=== PATIENT | female | born 1950 | race Caucasian/White ===

== ENCOUNTER → 2016-07-03 | Outpatient (CLI) | payer MEDICARE, OTHER ==
--- NOTE | 2016-07-04 09:55 | MM ---
Reason for exam: screening (asymptomatic). Last mammogram was performed 1 year ago. History: Patient is postmenopausal. Family history of breast cancer in 2 paternal cousins. Took estrogen for 11 years. Physical Findings: A clinical breast exam by your physician is recommended on an annual basis and results should be correlated with mammographic findings. MG 3D Screening Mammo W/Cad Bilateral CC and MLO view(s) were taken. Prior study comparison: July 01, 2015, bilateral MG 3d screening mammo w/cad. June 29, 2014, bilateral MG screening mammo w CAD. The breast tissue is heterogeneously dense. This may lower the sensitivity of mammography. There is no discrete abnormality. No significant changes when compared with prior studies. ASSESSMENT: Negative, BI-RAD 1 RECOMMENDATION: Routine screening mammogram of both breasts in 1 year.
== END | disposition home or self-care (01) ==
LOC: RADMAMWWP 10:10
PROVIDERS: ATTEND Obstetrics & Gynecology
DX: Z12.31 Encounter for screening mammogram for malignant neoplasm of breast (principal)
CPT/HCPCS: 77063; G0202

== ENCOUNTER → 2016-11-14 | Outpatient (CLI) | payer MEDICARE ==
--- NOTE | 2016-11-14 09:28 | CT ---
EXAMINATION TYPE: CT sinus wo con DATE OF EXAM: 11/14/2016 COMPARISON: NONE HISTORY: Chronic Sinusitis CT DLP: 600 mGycm. Automated Exposure Control for Dose Reduction was Utilized. TECHNIQUE: CT scan of the sinuses is performed without contrast, axial images are obtained, coronal r eformatted images are also reviewed. FINDINGS: There is mild atrophic change involving the brain. The orbits appear normal. Soft tissues a re otherwise normal. There is a 1.5 cm retention cyst or polyp involving the inferior aspect of the right maxillary sinus. The paranasal sinuses are otherwise clear. Both infundibula are patent. IMPRESSION: 1. MILD CEREBRAL ATROPHY. 2. RETENTION CYST OR POLYP, RIGHT MAXILLARY SINUS.
== END | disposition home or self-care (01) ==
LOC: RADCTMAIN 08:53
PROVIDERS: ATTEND Otolaryngology
DX: G31.9 Degenerative disease of nervous system, unspecified (principal); J32.9 Chronic sinusitis, unspecified
CPT/HCPCS: 70486

== ENCOUNTER → 2017-07-12 | Outpatient (CLI) | payer MEDICARE ==
--- NOTE | 2017-07-12 09:20 | MM ---
Reason for exam: additional evaluation requested from abnormal screening. Last mammogram was performed less than 1 month ago. History: Patient is postmenopausal. Family history of breast cancer in 2 paternal cousins. Took estrogen for 11 years. Physical Findings: Nurse did not find any significant physical abnormalities on exam. MG 3D Work Up W/Cad RT Spot compression CC, spot compression MLO, and ML view(s) were taken of the right breast. Prior study comparison: July 05, 2017, bilateral MG 3d screening mammo w/cad. July 03, 2016, bilateral MG 3d screening mammo w/cad. The breast tissue is heterogeneously dense. This may lower the sensitivity of mammography. The previously seen focal asymmetry resolves on spot compression views and appears as fibroglandular tissue. No significant new findings when compared with previous films. These results were verbally communicated with the patient and result sheet given to the patient on 07/12/17. ASSESSMENT: Negative, BI-RAD 1 RECOMMENDATION: Return to routine screening mammogram schedule for both breasts.
== END | disposition home or self-care (01) ==
LOC: RADMAMWWP 08:13
PROVIDERS: ATTEND Obstetrics & Gynecology
DX: R92.8 Other abnormal and inconclusive findings on diagnostic imaging of breast (principal)
CPT/HCPCS: 77065; G0279

== ENCOUNTER → 2017-07-17 | Outpatient (CLI) | payer MEDICARE ==
--- NOTE | 2017-07-17 15:22 | BD ---
EXAMINATION TYPE: MG DEXA axial skeleton. DATE OF EXAM: 07/17/2017 COMPARISON: Prior DEXA bone scan June 29, 2014 CLINICAL HISTORY: Postmenopausal femaleosteopenia Height: 5'2 1/2 Weight: 198 FRAX RISK QUESTIONS: Alcohol (3 or more units per day): no Family History (Parent hip fracture): no Glucocorticoids (More than 3mos): no (Ex: prednisone, prednisolone, methylprednisolone, dexamethasone, and hydrocortisone). History of Fracture in Adulthood: no Secondary Osteoporosis: 1. Type 1 Diabetes: no 2. Hyperthyroidism: no 3. Menopause before 45: yes 4. Malnutrition: no 5. Chronic liver disease: no Rheumatoid Arthritis: no Current Tobacco Use: no RISK FACTORS HISTORY OF: Postmenopausal woman: y synthroid how long: > 10 years MEDICATIONS: Additional Medications: anxiety, cholesterol, synthroid Additional History: EXAM MEASUREMENTS: Bone mineral densitometry was performed using the [employer] System. Bone mineral density as measured about the Lumbar spine is: ----- L1-L4(G/cm2): 1.294 T Score Values are as follows: ----- L2: 1.0 ----- L3: 0.9 ----- L4: 2.2 ----- L1-L4:1.0 Bone mineral density has: Decreased -3.2since study of: 06/29/2014 Bone mineral density about the R hip (g/cm2): 0.831 Bone mineral density about the L hip (g/cm2): 0.940 T Score values are as follows: -----R Neck: -1.5 -----L Neck: -0.7 -----R Total: -0.1 -----L Total: -0.2 Bone mineral density has: Decreased -2.7inc study of: 06/29/2014 IMPRESSION: Osteopenia (T Score between -2.5 and -1) at femoral neck level right hip. There is slightly increased risk of fracture and the patient may be considered for treatment. Re-Screen 2-5 years. NOTE: T-SCORE=SD OF THE YOUNG ADULT MEAN.
== END ==
LOC: RADBDWWP 12:41
PROVIDERS: ATTEND Obstetrics & Gynecology
DX: M85.88 Other specified disorders of bone density and structure, other site (principal)
CPT/HCPCS: 77080

== ENCOUNTER 2017-12-29 18:07 | Emergency (ER) | payer MEDICARE ==
[2017-12-29 18:18] VITALS: BP 140/73; PULSE 67; RESP 18; TEMP 98.2
--- NOTE | 2017-12-29 19:18 | US ---
EXAMINATION TYPE: US venous doppler duplex LE RT DATE OF EXAM: 12/29/2017 7:08 PM COMPARISON: Right lower extremity venous ultrasound October 15, 2015 CLINICAL HISTORY: Pain. SIDE PERFORMED: Right TECHNIQUE: The lower extremity deep venous system is examined utilizing real time linear array sonog katherine with graded compression, doppler sonography and color-flow sonography. VESSELS IMAGED: External Iliac Vein (EIV) Common Femoral Vein Deep Femoral Vein Greater Saphenous Vein * Femoral Vein Popliteal Vein Small Saphenous Vein * Proximal Calf Veins (* superficial vessels) Right Leg: Negative for DVT Area of pain scanned and compressible varicose veins (vv) found in that area as well as edema. Grayscale, color doppler, spectral doppler imaging performed of the deep veins of the right lower ext remity. There is normal flow, compressibility, vascular waveforms. IMPRESSION: No evidence of acute DVT in the right lower extremity. Prominent varicose vein redemonst rated at site of pain.
--- NOTE | 2017-12-29 19:48 | ED ---
General Adult HPI - General Chief complaint: Extremity Problem,Nontraumatic Stated complaint: rt leg swelling Time Seen by Provider: 12/29/17 18:42 Source: patient, RN notes reviewed Mode of arrival: ambulatory Limitations: no limitations - History of Present Illness Initial comments: Patient's a 67-year-old female presented to the emergency room today with a chief complaint of right calf pain over the last 2 days. Patient does admit that she had varicose vein surgery performed back in May 2017. She states the past 2 days she's had some pain to the right calf. She states she did have a blood clot in the past and was concerned and her reason for coming here to the emergency room. Patient states pain is worse with certain movements. There is redness and some local tenderness and swelling to the mid medial aspect. Patient denies any recent fever, chills, shortness of breath, chest pain , back pain, abdominal pain, nausea or vomiting, headaches or visual changes, or any other complaints. - Related Data Home Medications Medication Instructions Recorded Confirmed Atorvastatin [Lipitor] 40 mg PO DAILY 08/17/14 05/06/15 Citalopram Hydrobromide 40 mg PO DAILY 08/17/14 05/06/15 [Citalopram HBr] Levothyroxine Sodium [Synthroid] 88 mcg PO DAILY 08/17/14 05/06/15 Previous Rx's Medication Instructions Recorded Cephalexin [Keflex] 500 mg PO Q12HR 10 Days cap 12/29/17 Allergies Allergy/AdvReac Type Severity Reaction Status Date / Time acetaminophen [From Lortab] Allergy Unknown Verified 12/29/17 18:19 hydrocodone bitartrate Allergy "MADE ME Verified 12/29/17 18:19 [From Lortab] SPACED OUT, EFFECTED B/P" propoxyphene HCl Allergy Unknown Verified 12/29/17 18:19 [From Darvon] clemastine fumarate AdvReac Unknown Verified 12/29/17 18:19 [From Tavist] codeine AdvReac Unknown Verified 12/29/17 18:19 meperidine HCl [From Demerol] AdvReac Unknown Verified 12/29/17 18:19 pseudoephedrine HCl AdvReac Unknown Verified 12/29/17 18:19 [From Tavist] Review of Systems ROS Statement: Those systems with pertinent positive or pertinent negative responses have been documented in the HPI. ROS Other: All systems not noted in ROS Statement are negative. Past Medical History Past Medical History: Deep Vein Thrombosis (DVT), Hyperlipidemia, Thyroid Disorder Additional Past Medical History / Comment(s): HX DVT RT LEG History of Any Multi-Drug Resistant Organisms: None Reported Past Surgical History: Appendectomy, Cholecystectomy, Hysterectomy, Orthopedic Surgery, Tonsillectomy, Tubal Ligation Additional Past Surgical History / Comment(s): varicose vein surgery 05/2018 Past Anesthesia/Blood Transfusion Reactions: Postoperative Nausea & Vomiting ( PONV) Past Psychological History: Anxiety Smoking Status: Former smoker Past Alcohol Use History: None Reported Past Drug Use History: None Reported - Past Family History Mother Family Medical History: Deep Vein Thrombosis (DVT) Sister(s) Family Medical History: Deep Vein Thrombosis (DVT) General Exam - General Exam Comments Initial Comments: General: The patient is awake and alert, in no distress, and does not appear acutely ill. Neck: The neck is supple, there is no tenderness or JVD. Cardiovascular: There is a regular rate and rhythm. No murmur, rub or gallop is appreciated. Respiratory: Lungs are clear to auscultation, respirations are non-labored, breath sounds are equal. No wheezes, stridor, rales, or rhonchi. Musculoskeletal: Patient does have some pain and redness to the medial aspect of the right lower calf. There is some increased warmth. Pedal pulses are 2+. Strength 5/5 sensation intact. Patient has full range motion. Neurological: A&O x 3. CN II-XII intact, There are no obvious motor or sensory deficits. Coordination appears grossly intact. Speech is normal. Skin: Mild redness to the right mid calf. No lymphangitic streaking. Psychiatric: Normal mood and affect. Limitations: no limitations Course Vital Signs 12/29/17 18:14 Temperature 98.2 F Pulse Rate 67 Respiratory 18 Rate Blood Pressure 140/73 O2 Sat by Pulse 99 Oximetry Medical Decision Making - Medical Decision Making Patient's ultrasound is negative for any evidence of a DVT. Patient will be treated with Keflex to cover for early cellulitis is advised follow-up family doctor next 2 days return if symptoms increase or worsen. Disposition Clinical Impression: Cellulitis Disposition: HOME SELF-CARE Condition: Good Instructions: Cellulitis (ED) Additional Instructions: Please use medication as discussed. Please follow-up with family doctor in the next 2 days of symptoms have not improved. Please return to emergency room if the symptoms increase or worsen or for any other concerns. Prescriptions: Cephalexin [Keflex] 500 mg PO Q12HR 10 Days cap Is patient prescribed a controlled substance at d/c from ED?: No Referrals: Laverne Rodgers MD [Primary Care Provider] - 1-2 days Time of Disposition: 19:47
== END 2017-12-29 19:59 | disposition home or self-care (01) ==
LOC: EC 18:07
DX: L03.115 Cellulitis of right lower limb (principal); E78.5 Hyperlipidemia, unspecified; E07.9 Disorder of thyroid, unspecified; F41.9 Anxiety disorder, unspecified; Z98.890 Other specified postprocedural states; Z86.718 Personal history of other venous thrombosis and embolism; Z87.891 Personal history of nicotine dependence; Z82.49 Family history of ischemic heart disease and other diseases of the circulatory system; Z79.899 Other long term (current) drug therapy; Z88.6 Allergy status to analgesic agent; Z88.5 Allergy status to narcotic agent; Z88.8 Allergy status to other drugs, medicaments and biological substances
CPT/HCPCS: 99283

== ENCOUNTER → 2018-08-02 | Outpatient (CLI) | payer MEDICARE ==
--- NOTE | 2018-08-06 13:45 | MM ---
Reason for exam: screening (asymptomatic). Last mammogram was performed 1 year and 1 month ago. History: Patient is postmenopausal. Family history of breast cancer in 2 paternal cousins. Took estrogen for 11 years. Physical Findings: A clinical breast exam by your physician is recommended on an annual basis and results should be correlated with mammographic findings. MG 3D Screening Mammo W/Cad Bilateral CC and MLO view(s) were taken. Prior study comparison: July 12, 2017, right breast MG 3d work up w/cad RT. July 05, 2017, bilateral MG 3d screening mammo w/cad. The breast tissue is heterogeneously dense. This may lower the sensitivity of mammography. There is chronic nodularity in the left breast. No significant changes when compared with prior studies. ASSESSMENT: Benign, BI-RAD 2 RECOMMENDATION: Routine screening mammogram of both breasts in 1 year.
== END ==
LOC: RADMAMWWP 08:51
PROVIDERS: ATTEND Obstetrics & Gynecology
DX: Z12.31 Encounter for screening mammogram for malignant neoplasm of breast (principal); Z80.3 Family history of malignant neoplasm of breast
CPT/HCPCS: 77063; 77067

== ENCOUNTER → 2019-10-10 | Outpatient (CLI) | payer MEDICARE ==
--- NOTE | 2019-10-16 10:34 | MM ---
Reason for exam: screening (asymptomatic). Last mammogram was performed 1 year and 2 months ago. History: Patient is postmenopausal. Family history of breast cancer in 2 paternal cousins. Took hormonal contraceptives for 4 months. Took estrogen for 11 years. Physical Findings: A clinical breast exam by your physician is recommended on an annual basis and results should be correlated with mammographic findings. MG 3D Screening Mammo W/Cad Bilateral CC and MLO view(s) were taken. Prior study comparison: August 02, 2018, bilateral MG 3d screening mammo w/cad. July 12, 2017, right breast MG 3d work up w/cad RT. The breast tissue is heterogeneously dense. This may lower the sensitivity of mammography. No significant changes when compared with prior studies. ASSESSMENT: Benign, BI-RAD 2 RECOMMENDATION: Routine screening mammogram of both breasts in 1 year.
== END | disposition home or self-care (01) ==
LOC: RADMAMWWP 08:36
PROVIDERS: ATTEND Obstetrics & Gynecology
DX: Z12.31 Encounter for screening mammogram for malignant neoplasm of breast (principal)
CPT/HCPCS: 77063; 77067

== ENCOUNTER → 2020-04-15 | Outpatient (CLI) | payer MEDICARE ==
--- NOTE | 2020-04-15 19:51 | US ---
EXAMINATION TYPE: US venous doppler duplex LE RT DATE OF EXAM: 04/15/2020 3:39 PM COMPARISON: NONE CLINICAL HISTORY: 69-year-old female R60.0 Localized Edema,Z86.718 hx of thrombosis. Pain SIDE PERFORMED: Right TECHNIQUE: The lower extremity deep venous system is examined utilizing real time linear array sonog katherine with graded compression, doppler sonography and color-flow sonography. FINDINGS: VESSELS IMAGED: Common Femoral Vein Deep Femoral Vein Greater Saphenous Vein * Femoral Vein Popliteal Vein Small Saphenous Vein * Proximal Calf Veins (* superficial vessels) Right Leg: Negative for DVT IMPRESSION: No evidence for DVT within the right lower extremity imaged from the groin to the upper calf.
== END | disposition home or self-care (01) ==
LOC: RADUSWWP 15:19
PROVIDERS: ATTEND Family Medicine
DX: I83.891 Varicose veins of right lower extremity with other complications (principal); E72.12 Methylenetetrahydrofolate reductase deficiency; Z86.718 Personal history of other venous thrombosis and embolism

== ENCOUNTER → 2020-09-17 | Outpatient (CLI) | payer MEDICARE ==
--- NOTE | 2020-09-20 13:56 | BD ---
EXAMINATION TYPE: Axial Bone Density DATE OF EXAM: 09/17/2020 COMPARISON: NONE CLINICAL HISTORY: Height: 5FT 2 1/2 IN Weight: 195 FRAX RISK QUESTIONS: Alcohol (3 or more units per day): NO Family History (Parent hip fracture): NO Glucocorticoids (More than 3mos): NO (Ex: prednisone, prednisolone, methylprednisolone, dexamethasone, and hydrocortisone). History of Fracture in Adulthood: NO Secondary Osteoporosis: 1. Type 1 Diabetes: NO 2. Hyperthyroidism: NO 3. Menopause before 45: YES 4. Malnutrition: NO 5. Chronic liver disease: NO Rheumatoid Arthritis: NO Current Tobacco Use: NO RISK FACTORS HISTORY OF: Surgery to Spine/Hip(right/left)/Wrist (right/left): NO Family History of Osteoporosis: NO Active: YES Diet low in dairy products/other sources of calcium: NO Postmenopausal woman: TOTAL HYSTER AGE 42 Take estrogen and/or progesterone medications: TOOK HRT FROM AGE [age] NO LONGER Lost more than 2 inches in height since high school: YES MEDICATIONS: Thyroid Medications: YES Which medication: Levothyroxine How Long: OVER 13 YEARS Additional Medications: LEVOTHYROXINE,ATORVASTATIN, CELEXA, OMEPRAZOLE,XANAX EXAM MEASUREMENTS: Bone mineral densitometry was performed using the [employer] System. Bone mineral density as measured about the Lumbar spine is: ----- L1-L4(G/cm2): 1.288 T Score Values are as follows: ----- L2: 0.9 ----- L3: 1.8 ----- L4: 1.3 ----- L1-L4: 0.9 Bone mineral density has: DECREASED -0.2 % since study of: 2017 Bone mineral density about the R hip (g/cm2): 0.849 Bone mineral density about the L hip (g/cm2): 0.921 T Score values are as follows: -----R Neck: -1.4 -----L Neck: -0.8 -----R Total: -1.5 -----L Total: -0.2 Bone mineral density has: DECREASED -4.0 % since study of: 2018 IMPRESSION: Findings are consistent with osteopenia. Bone mineral density has decreased since prior exam as descr ibed above. Consider medical treatment. Risk of major osteoporotic fracture is 8.8% and hip fracture is 1.1%. This is based on 10 year probability of fracture. NOTE: T-SCORE=SD OF THE YOUNG ADULT MEAN.
== END | disposition home or self-care (01) ==
LOC: RADBDWWP 15:01
PROVIDERS: ATTEND Obstetrics & Gynecology
DX: M85.89 Other specified disorders of bone density and structure, multiple sites (principal)
CPT/HCPCS: 77080

== ENCOUNTER → 2020-10-14 | Outpatient (CLI) | payer MEDICARE ==
--- NOTE | 2020-10-18 08:18 | MM ---
Reason for exam: screening (asymptomatic). Last mammogram was performed 1 year ago. History: Patient is postmenopausal. Family history of breast cancer in 2 paternal cousins. Took hormonal contraceptives for 4 months. Took estrogen for 11 years. Physical Findings: A clinical breast exam by your physician is recommended on an annual basis and results should be correlated with mammographic findings. MG 3D Screening Mammo W/Cad Bilateral CC and MLO view(s) were taken. Prior study comparison: October 10, 2019, bilateral MG 3d screening mammo w/cad. August 02, 2018, bilateral MG 3d screening mammo w/cad. The breast tissue is heterogeneously dense. This may lower the sensitivity of mammography. Stable vascular calcifications. There is no discrete abnormality. No significant changes when compared with prior studies. ASSESSMENT: Benign, BI-RAD 2 RECOMMENDATION: Routine screening mammogram of both breasts in 1 year.
== END | disposition home or self-care (01) ==
LOC: RADMAMWWP 08:35
PROVIDERS: ATTEND Obstetrics & Gynecology
DX: Z12.31 Encounter for screening mammogram for malignant neoplasm of breast (principal); Z78.0 Asymptomatic menopausal state; Z80.3 Family history of malignant neoplasm of breast; Z79.3 Long term (current) use of hormonal contraceptives
CPT/HCPCS: 77063; 77067

== ENCOUNTER → 2021-08-11 | Outpatient (CLI) | payer MEDICARE ==
--- NOTE | 2021-08-17 17:15 | MM ---
Reason for Exam: Clinical finding. Last screening mammogram was performed 10 month(s) ago. Patient History: Menarche at age 13. First Full-Term at age 19. Left ovary removed at age 42. Right ovary removed at age 42. Hysterectomy at age 42. Postmenopausal. Patient used Estrogen for 11 years. Hormonal Contraceptives for 4 months. Paternal cousin had breast cancer. Paternal cousin had breast cancer. Risk Values: Xiomy 5 year model risk: 1.2%. NCI Lifetime model risk: 3.7%. Prior Study Comparison: 08/02/2018 Bilateral Screening Mammogram, [facility]. 10/10/2019 Bilateral Screening Mammogram, [facility]. 10/14/2020 Bilateral Screening Mammogram, [facility]. Tissue Density: Left: The breast tissue is heterogeneously dense. This may lower the sensitivity of mammography. Findings: Analyzed By CAD. Pattern appears stable. Chronic nodularity is the outer aspect left breast. Benign vascular calcifications present. No significant interval change is evident. Overall Assessment: Benign, BI-RAD 2 Management: Screening Mammogram of both breasts in 6 months. A clinical breast exam by your physician is recommended on an annual basis and results should be correlated with mammographic findings. This exam should not preclude additional follow-up of suspicious palpable abnormalities. Results were given to the patient verbally at the time of exam. Patient should continue monthly self breast exam. Electronically signed and approved by: Edmundo Kruger D.O. Radiologis
== END | disposition home or self-care (01) ==
LOC: RADMAMWWP 07:35
PROVIDERS: ATTEND Obstetrics & Gynecology
DX: R92.1 Mammographic calcification found on diagnostic imaging of breast (principal); Z78.0 Asymptomatic menopausal state; Z80.3 Family history of malignant neoplasm of breast; Z90.721 Acquired absence of ovaries, unilateral
CPT/HCPCS: 77065; G0279; 77061

== ENCOUNTER → 2021-09-08 | Outpatient (CLI) | payer MEDICARE ==
[2021-09-08 11:07] VITALS: BP 141/76; PULSE 68; RESP 18; TEMP 98.2
--- NOTE | 2021-09-08 11:44 | P.GSHP ---
History of Present Illness H&P Date: 09/08/21 Chief Complaint: breast pain Dennise is a 70 year old white female seen in consultation for Dr. Dowd regarding breast pain. She had a bilateral mammogram on 10-14-21 which was BIRAD 2, and a repeat left breast mammogram on 08-11-21 which was BIRAD 2. Bilateral mammogram in 6 months was recommended. She states in March she was under stress and "screamed", she states after all her muscles in her chest were very tight. She had a massage and pain in her lateral chest wall and radiated into her breast. She is not complaining of any lumps masses or nodules of concern in either breast. She's not complaining of any nipple discharge or skin changes. She is not had any recent trauma or infection to the breast. She did have musculoskeletal pain as noted above. It is improving at this time. Note from DR. Dowd 05-09-21 reviewed Caffiene: 3 cups/day nicotine: none, stopped 50 years ago, was a casual smoker for about 5 years hormones: stopped 15 years ago; took them for about 4 years; premarin BCP: in her 20's (less than a year) Family History: paternal cousin 2 with breast cancer Hormonal History: menarche: 13 , breast fed: no, age at first : 19 menopause: hysterectomy for pain BCP: as above, hormones: as above Surgical History: Hysterectomy took ovaries in her 40's gallbladder tonsil appy Medical History: high cholesterol panic attacks reflux hypothyroid DVT Social History: HEENT: Negative Alcohol: Negative Drugs:none - Constitutional Constitutional: Denies chills, Denies fever - EENT Eyes: denies blurred vision, denies pain Ears: deny: decreased hearing, tinnitus Ears, nose, mouth and throat: Denies headache, Denies sore throat - Breasts Breasts: bilateral: as per HPI - Cardiovascular Cardiovascular: Denies chest pain, Denies shortness of breath - Respiratory Respiratory: Denies cough, Denies 7 - Gastrointestinal Gastrointestinal: Denies abdominal pain, Denies diarrhea, Denies nausea, Denies vomiting - Genitourinary (Female) Genitourinary: Denies dysuria, Denies hematuria - Menstruation Menstruation: Reports post hysterectomy - Musculoskeletal Musculoskeletal: Denies myalgias - Integumentary Integumentary: Denies pruritus, Denies rash - Neurological Neurological: Denies numbness, Denies weakness - Psychiatric Psychiatric: Denies anxiety, Denies depression - Endocrine Comment: hypothyroid Endocrine: Reports weight change - Hematologic/Lymphatic Comment: none - Allergic/Immunologic Allergic/Immunologic: Reports as per HPI Past Medical History Past Medical History: Deep Vein Thrombosis (DVT), Hyperlipidemia, Thyroid Disorder Additional Past Medical History / Comment(s): HX DVT RT LEG History of Any Multi-Drug Resistant Organisms: None Reported Past Surgical History: Appendectomy, Cholecystectomy, Hysterectomy, Orthopedic Surgery, Tonsillectomy, Tubal Ligation Additional Past Surgical History / Comment(s): varicose vein surgery 05/2018 Past Anesthesia/Blood Transfusion Reactions: Postoperative Nausea & Vomiting (PONV) Past Psychological History: Anxiety Smoking Status: Former smoker Past Alcohol Use History: None Reported Additional Past Alcohol Use History / Comment(s): SMOKED FOR 4-5 YRS IN 20'S LESS THAN 1PPD Past Drug Use History: None Reported - Past Family History Mother Family Medical History: Deep Vein Thrombosis (DVT) Sister(s) Family Medical History: Deep Vein Thrombosis (DVT) Medications and Allergies Home Medications Medication Instructions Recorded Confirmed Type Atorvastatin [Lipitor] 40 mg PO DAILY 08/17/14 09/08/21 History Citalopram Hydrobromide 40 mg PO DAILY 08/17/14 09/08/21 History [Citalopram HBr] Levothyroxine Sodium [Synthroid] 88 mcg PO DAILY 08/17/14 09/08/21 History Pantoprazole [Protonix] 40 mg PO DAILY 09/08/21 09/08/21 History Allergies Allergy/AdvReac Type Severity Reaction Status Date / Time acetaminophen [From Lortab] Allergy Unknown Verified 09/08/21 11:01 hydrocodone bitartrate Allergy "MADE ME Verified 09/08/21 11:01 [From Lortab] SPACED OUT, EFFECTED B/P" propoxyphene HCl Allergy Unknown Verified 09/08/21 11:01 [From Darvon] clemastine fumarate AdvReac Unknown Verified 09/08/21 11:01 [From Tavist] codeine AdvReac Unknown Verified 09/08/21 11:01 meperidine HCl [From Demerol] AdvReac Unknown Verified 09/08/21 11:01 pseudoephedrine HCl AdvReac Unknown Verified 09/08/21 11:01 [From Tavist] Surgical - Exam Vital Signs Temp Pulse Resp BP Pulse Ox 98.2 F 68 18 141/76 97 09/08/21 11:04 09/08/21 11:04 09/08/21 11:04 09/08/21 11:04 09/08/21 11:04 BMI: 32.9 - General no distress - Eyes normal ocular movement - Neck trachea midline - Respiratory normal respiratory effort, clear to auscultation - Cardiovascular Rhythm: regular Heart Sounds: normal: S1, S2 - Abdomen Abdomen: soft - Integumentary normal turgor - Neurologic no disoriented, no combative - Musculoskeletal normal gait - Psychiatric oriented to time, oriented to person, oriented to place, speech is normal, memory intact Breast Exam: BRA: 38D inspection: bilateral grade 3 ptosis palpation: right breast: Multi-positional exam fibrocystic changes no dominant masses or nodules of concern Right axilla: No adenopathy of concern Left breast: Multi-positional exam fibrocystic changes no dominant masses or nodules of concern Left axilla: No adenopathy of concern Results Mammogram left breast no lesions of concern 08-11-21 Assessment and Plan Assessment: Impression: high cholesterol panic attacks reflux hypothyroid DVT Chest wall pain left side with radiation into the breast Fibrocystic breast changes No radiographic changes in the breast of concern nothing of concern on physical exam Plan: Bilateral mammogram in October 2021 with physician exam at that time If the mammogram does not show any lesions of concern and the pain continues to resolve she will follow with Dr. Dowd Cc: Dr. Son, Dr. Seymour
== END ==
LOC: WWCWWP 10:51
PROVIDERS: ATTEND Surgery
DX: N60.11 Diffuse cystic mastopathy of right breast (principal); N60.12 Diffuse cystic mastopathy of left breast; E78.00 Pure hypercholesterolemia, unspecified; E03.9 Hypothyroidism, unspecified; I82.409 Acute embolism and thrombosis of unspecified deep veins of unspecified lower extremity; R07.89 Other chest pain; F41.0 Panic disorder [episodic paroxysmal anxiety]; K21.9 Gastro-esophageal reflux disease without esophagitis; Z87.891 Personal history of nicotine dependence; Z79.890 Hormone replacement therapy; Z79.899 Other long term (current) drug therapy; Z88.6 Allergy status to analgesic agent; Z88.5 Allergy status to narcotic agent; Z88.8 Allergy status to other drugs, medicaments and biological substances

== ENCOUNTER → 2021-10-31 | Outpatient (CLI) | payer MEDICARE ==
--- NOTE | 2021-11-01 10:47 | MM ---
Reason for Exam: Screening (asymptomatic). Last mammogram was performed 1 year(s) and 1 month(s) ago. Patient History: Menarche at age 13. First Full-Term at age 19. Left ovary removed at age 42. Right ovary removed at age 42. Hysterectomy at age 42. Postmenopausal. Patient used Estrogen for 11 years. Hormonal Contraceptives for 4 months. Paternal cousin had breast cancer, age 40. Paternal cousin had breast cancer. Risk Values: Xiomy 5 year model risk: 1.3%. NCI Lifetime model risk: 3.5%. Prior Study Comparison: 10/10/2019 Bilateral Screening Mammogram, [facility]. 10/14/2020 Bilateral Screening Mammogram, [facility]. 08/11/2021 Left MG 3D diag mammo w/cad , [facility]. Tissue Density: The breast tissue is heterogeneously dense. This may lower the sensitivity of mammography. Findings: Analyzed By CAD. There is no suspicious group of microcalcifications or new suspicious mass in either breast. Stable benign calcifications. Overall Assessment: Benign, BI-RAD 2 Management: Screening Mammogram of both breasts in 1 year. A clinical breast exam by your physician is recommended on an annual basis and results should be correlated with mammographic findings. Electronically signed and approved by: Virgil Fall M.D. Radiologis
== END | disposition home or self-care (01) ==
LOC: RADMAMWWP 09:13
PROVIDERS: ATTEND Surgery
DX: Z12.31 Encounter for screening mammogram for malignant neoplasm of breast (principal); Z78.0 Asymptomatic menopausal state; Z80.3 Family history of malignant neoplasm of breast
CPT/HCPCS: 77063; 77067

== ENCOUNTER → 2021-11-03 | Outpatient (CLI) | payer MEDICARE ==
[2021-11-03 11:33] VITALS: BP 156/76; PULSE 66; RESP 17; TEMP 98.1
--- NOTE | 2021-11-03 11:53 | P.PN ---
Subjective Progress Note Date: 11/03/21 Principal diagnosis: breast pain Dennise is a 71 year old white female seen in consultation for Dr. Dowd on 09-08-21 regarding breast pain. She had a bilateral mammogram on 10-14-20 which was BIRAD 2, and a repeat left breast mammogram on 08-11-21 which was BIRAD 2. Bilateral mammogram in 6 months was recommended. She states in March she was under stress and "screamed", she states after all her muscles in her chest were very tight. She had a massage and pain in her lateral chest wall radiated into her breast. She is not complaining of any lumps masses or nodules of concern in either breast. She's not complaining of any nipple discharge or skin changes. She is not had any recent trauma or infection to the breast. She did have musculoskeletal pain as noted above. It is resolved at this time. She had a breast examination by myself on [id number] she is not complaining of any new lumps masses or nodules of concern in either breast and is declined further breast examination at this time. Bilateral mammogram on 10-31-21 BIRAD 2 Caffiene: 3 cups/day nicotine: none, stopped 50 years ago, was a casual smoker for about 5 years hormones: stopped 15 years ago; took them for about 4 years; premarin BCP: in her 20's (less than a year) Family History: paternal cousin 2 with breast cancer Hormonal History: menarche: 13 , breast fed: no, age at first : 19 menopause: hysterectomy for pain BCP: as above, hormones: as above Surgical History: Hysterectomy took ovaries in her 40's gallbladder tonsil appy Medical History: high cholesterol panic attacks reflux hypothyroid DVT Social History: HEENT: Negative Alcohol: Negative Drugs:none - Constitutional Constitutional: Denies chills, Denies fever - EENT Eyes: denies blurred vision, denies pain Ears: deny: decreased hearing, tinnitus Ears, nose, mouth and throat: Denies headache, Denies sore throat - Breasts Breasts: bilateral: as per HPI - Cardiovascular Cardiovascular: Denies chest pain, Denies shortness of breath - Respiratory Respiratory: Denies cough - Gastrointestinal Gastrointestinal: Denies abdominal pain, Denies diarrhea, Denies nausea, Denies vomiting - Genitourinary (Female) Genitourinary: Denies dysuria, Denies hematuria - Menstruation Menstruation: Reports post hysterectomy - Musculoskeletal Musculoskeletal: Denies myalgias - Integumentary Integumentary: Denies pruritus, Denies rash - Neurological Neurological: Denies numbness, Denies weakness - Psychiatric Psychiatric: Denies anxiety, Denies depression - Endocrine Comment: hypothyroid Endocrine: Reports weight change - Hematologic/Lymphatic Comment: none - Allergic/Immunologic Allergic/Immunologic: Reports as per HPI Objective - Vital Signs Vital signs: Vital Signs Temp 98.1 F 11/03/21 11:31 Pulse 66 11/03/21 11:31 Resp 17 11/03/21 11:31 BP 156/76 11/03/21 11:31 Pulse Ox 96 11/03/21 11:31 FiO2 Intake & Output 11/02/21 11/03/21 11/03/21 18:59 06:59 18:59 Weight 86.183 kg Assessment and Plan Assessment: Impression: Fibrocystic breast changes as per prior exam Results breast pain Recent bilateral mammogram e- [id number] benign BIRADS 2 Plan: Bilateral mammogram in 1 year with physician exam at that time, she will follow with Dr. Dowd Follow-up care as needed Cc: Dr. Son
== END ==
LOC: WWCWWP 11:07
PROVIDERS: ATTEND Surgery
DX: N60.19 Diffuse cystic mastopathy of unspecified breast (principal); E78.00 Pure hypercholesterolemia, unspecified; F41.0 Panic disorder [episodic paroxysmal anxiety]; E03.9 Hypothyroidism, unspecified; Z86.73 Personal history of transient ischemic attack (TIA), and cerebral infarction without residual deficits; K21.9 Gastro-esophageal reflux disease without esophagitis; Z87.891 Personal history of nicotine dependence; Z88.6 Allergy status to analgesic agent; Z88.5 Allergy status to narcotic agent; Z88.8 Allergy status to other drugs, medicaments and biological substances

== ENCOUNTER 2021-12-13 09:24 | Emergency (ER) | payer MEDICARE ==
[2021-12-13 10:05] VITALS: PULSE 83; RESP 18; TEMP 98.3
[2021-12-13] MEDS ORDERED: KETOROLAC 15 MG/ML 1 ML VIAL IM STA (10:33)
--- NOTE | 2021-12-13 10:39 | ED ---
Back Pain HPI - General Chief Complaint: Back Pain/Injury Stated Complaint: Back pain Time Seen by Provider: 12/13/21 10:23 Source: patient, RN notes reviewed - History of Present Illness Initial Comments: Patient is a 71-year-old female presents the emergency room with complaints of thoracic area back pain which she states made it difficult for her to sleep during the night. She states that she woke up during the night with pain and tingling in her bilateral shoulder/upper arms. She denies any upper extremity pain or tingling at this time. She states that her back pain started approximately a week to week and a half ago and was associated with radiation up and down her spine and headache. At that time she went to her chiropractor for an adjustment and since that time she has had continued pain and the development of her extremity symptoms. She is not taking any medication to help with her symptoms. She denies any headache, dizziness or radiculopathy at this time. She denies any focal neurological deficits, chest pain, shortness of breath, abdominal pain, nausea, vomiting, fevers or chills. She has a past medical history significant for hyperlipidemia, DVT, hypothyroid and depression. - Related Data Home Medications Medication Instructions Recorded Confirmed Atorvastatin [Lipitor] 40 mg PO DAILY 08/17/14 11/03/21 Citalopram Hydrobromide 40 mg PO DAILY 08/17/14 11/03/21 [Citalopram HBr] Levothyroxine Sodium [Synthroid] 88 mcg PO DAILY 08/17/14 11/03/21 Pantoprazole [Protonix] 40 mg PO DAILY 09/08/21 11/03/21 Previous Rx's Medication Instructions Recorded Cyclobenzaprine [Flexeril] 5 mg PO BID PRN 7 Days #14 tab 12/13/21 Ibuprofen [Motrin] 600 mg PO Q8H PRN 7 Days #21 tab 12/13/21 Allergies Allergy/AdvReac Type Severity Reaction Status Date / Time acetaminophen [From Lortab] Allergy Unknown Verified 12/13/21 10:07 hydrocodone bitartrate Allergy "MADE ME Verified 12/13/21 10:07 [From Lortab] SPACED OUT, EFFECTED B/P" propoxyphene HCl Allergy Unknown Verified 12/13/21 10:07 [From Darvon] clemastine fumarate AdvReac Unknown Verified 12/13/21 10:07 [From Tavist] codeine AdvReac Unknown Verified 12/13/21 10:07 meperidine HCl [From Demerol] AdvReac Unknown Verified 12/13/21 10:07 pseudoephedrine HCl AdvReac Unknown Verified 12/13/21 10:07 [From Tavist] Review of Systems ROS Statement: Those systems with pertinent positive or pertinent negative responses have been documented in the HPI. ROS Other: All systems not noted in ROS Statement are negative. Past Medical History Past Medical History: Deep Vein Thrombosis (DVT), Hyperlipidemia, Thyroid Disorder Additional Past Medical History / Comment(s): HX DVT RT LEG History of Any Multi-Drug Resistant Organisms: None Reported Past Surgical History: Appendectomy, Cholecystectomy, Hysterectomy, Orthopedic Surgery, Tonsillectomy, Tubal Ligation Additional Past Surgical History / Comment(s): varicose vein surgery 05/2018 Past Anesthesia/Blood Transfusion Reactions: Postoperative Nausea & Vomiting ( PONV) Past Psychological History: Anxiety Smoking Status: Former smoker Past Alcohol Use History: None Reported Past Drug Use History: None Reported - Past Family History Mother Family Medical History: Deep Vein Thrombosis (DVT) Sister(s) Family Medical History: Deep Vein Thrombosis (DVT) General Exam General appearance: alert, in no apparent distress Head exam: Present: atraumatic, normocephalic, normal inspection Eye exam: Present: normal appearance, PERRL. Absent: scleral icterus, conjunctival injection, periorbital swelling ENT exam: Present: normal exam, mucous membranes moist Neck exam: Present: normal inspection, full ROM. Absent: tenderness Respiratory exam: Absent: respiratory distress, accessory muscle use Extremities exam: Present: normal inspection. Absent: pedal edema, joint swelling Back exam: Present: normal inspection, vertebral tenderness (t3-t4 region) Neurological exam: Present: alert, oriented X3, CN II-XII intact Psychiatric exam: Present: anxious Skin exam: Present: warm, dry, intact, normal color. Absent: rash Course Vital Signs 12/13/21 10:02 Temperature 98.3 F Pulse Rate 83 Respiratory 18 Rate Blood Pressure 171/67 O2 Sat by Pulse 98 Oximetry Medical Decision Making - Medical Decision Making 71 year old Caucasain female with history of chronic back pain with increase in localized pain with radiculopathy after adjustment by chiropractor; denies headache or radiculopathy at this time. Tenderness and pain in thoracic spine. Will check x-ray of thoracic spine. Will give IM Toradol and monitor response. X-ray negative for acute fracture. Symptoms improved with Toradol. Will discharge home with muscle relaxer and anti-inflammatory of ibuprofen. Encouraged follow-up with primary care provider, avoidance of further chiropractic manipulation until symptoms improve. Discussed return parameters. Case discussed with Dr. Ortez. - Radiology Data Radiology results: report reviewed, image reviewed X-ray thoracic spine impression scoliosis and degenerative disc disease Disposition Clinical Impression: Thoracic back pain Disposition: HOME SELF-CARE Condition: Stable Instructions (If sedation given, give patient instructions): Back Pain (ED) Additional Instructions: Please take muscle relaxer and ibuprofen for back pain. Please follow-up with your primary care provider. Please avoid further chiropractic adjustments until back pain is resolved. Please return to the Emergency Department if symptoms worsen or any other concerns. Prescriptions: Cyclobenzaprine [Flexeril] 5 mg PO BID PRN 7 Days #14 tab PRN Reason: Muscle Spasm Ibuprofen [Motrin] 600 mg PO Q8H PRN 7 Days #21 tab PRN Reason: Pain Is patient prescribed a controlled substance at d/c from ED?: No Referrals: Edmundo Seymour DO [Primary Care Provider] - 1-2 days Time of Disposition: 12:15
--- NOTE | 2021-12-13 11:00 | XR ---
Thoracic spine HISTORY: Pain 3 views of the thoracic spine There is an S-shaped thoracic lumbar scoliosis. Thoracic vertebral bodies show preserved height. Bone mineralization is maintained. There is mild multilevel spondylosis and loss of disc height at interv ertebral levels. No evident paraspinal mass. IMPRESSION: Scoliosis and degenerative disc disease.
[2021-12-13 12:22] VITALS: BP 164/84
== END 2021-12-13 12:22 | disposition home or self-care (01) ==
LOC: EC 09:24
DX: M54.6 Pain in thoracic spine (principal); E78.5 Hyperlipidemia, unspecified; E03.9 Hypothyroidism, unspecified; Z86.718 Personal history of other venous thrombosis and embolism; Z87.891 Personal history of nicotine dependence; Z79.890 Hormone replacement therapy; Z88.6 Allergy status to analgesic agent; Z88.5 Allergy status to narcotic agent; Z88.8 Allergy status to other drugs, medicaments and biological substances
CPT/HCPCS: 72072; 99283; 96372; J1885

== ENCOUNTER → 2022-06-13 | Outpatient (CLI) | payer MEDICARE ==
[2022-06-13 18:11] LABS: Basophils # (A) 0.06 X 10*3/uL (0.00-0.10); Eosinophils # (A) 0.11 X 10*3/uL (0.04-0.35); Eosinophils % (A) 1.9 %; HCT 40.7 % (37.2-46.3); HGB 13.2 g/dL (12.0-15.0); Immature Grans, Automated 0.2 %; Lymphocytes # (A) 1.73 X 10*3/uL (0.90-5.00); Lymphocytes % (A) 29.2 %; MCH 31.3 pg (27.0-32.0); MCHC 32.4 g/dL (32.0-37.0); MCV 96.4 fL (80.0-97.0); Mean Platelet Volume 9.8 fL (9.5-12.2); Monocytes # (A) 0.64 X 10*3/uL (0.20-1.00); Monocytes % (A) 10.8 %; NRBC Per 100 WBC 0 /100 WBCS (0.0-0.0); Neutrophils # (A) 3.38 X 10*3/uL (1.80-7.70); Neutrophils % (A) 56.9 %; Platelet Count 329 X 10*3/uL (140-440); RBC 4.22 X 10*6/uL (4.10-5.20); RDW 13.2 % (11.5-14.5); WBC 5.93 X 10*3/uL (4.50-10.00)
[2022-06-13 18:26] LABS: Erythrocyte Sedimentation Rate 11 mm/Hr (0-30)
[2022-06-13 18:29] LABS: ALT 20 U/L (8-44); AST 18 U/L (13-35); African American GFR (CKD) 95.1 (60.0-200.0); Albumin 4.4 g/dL (3.8-4.9); Albumin/Globulin Ratio 1.81 (1.60-3.17); Alkaline Phosphatase 59 U/L (41-126); BUN/Creat Ratio 21.06 Ratio (12.00-20.00); Blood Urea Nitrogen 15.5 mg/dL (9.0-27.0); C Reactive Protein <0.30 mg/dL (0.00-0.80); Calcium 9.8 mg/dL (8.7-10.3); Carbon Dioxide 26.5 mmol/L (20.0-27.5); Chloride 103 mmol/L (96-109); Globulin 2.4 g/dL (1.6-3.3); Glucose 87 mg/dL (70-110); Potassium 4.7 mmol/L (3.5-5.5); Sodium 139 mmol/L (135-145); Total Protein 6.9 g/dL (6.2-8.2)
== END | disposition home or self-care (01) ==
LOC: LABWHC1 10:47
PROVIDERS: ATTEND Physician Assistant
DX: M54.59 Other low back pain (principal); M51.34 Other intervertebral disc degeneration, thoracic region; M62.830 Muscle spasm of back
CPT/HCPCS: 36415; 80053; 85025; 85652; 86140

== ENCOUNTER → 2022-06-19 | Outpatient (CLI) | payer MEDICARE ==
--- NOTE | 2022-06-19 15:05 | NM ---
EXAMINATION TYPE: NM bone scan whole body DATE OF EXAM: 06/19/2022 COMPARISON: None HISTORY: Pain Delayed whole-body scanning was performed following the injection of 22.9 mCi Tc 99m MDP. Images acq uired 3 hours post injection. FINDINGS: Intense abnormal uptake involving the knees, and feet compatible severe arthritic change. Scoliosis with mcyy-ec-yyxrnrxk uptake throughout the thoracic spine and intense uptake involving the mid to lower lumbar spine appears degenerative. Abnormal uptake involving the shoulders likely posto perative related. IMPRESSION: Abnormal uptake involving the shoulders, knees and feet likely post arthritic. Abnormal uptake involv ing the vertebral column is likely on the basis of degenerative disc disease.
== END | disposition home or self-care (01) ==
LOC: RADNMMAIN 10:05
PROVIDERS: ATTEND Orthopaedic Surgery Orthopaedic Surgery of the Spine
DX: M51.34 Other intervertebral disc degeneration, thoracic region (principal); M62.830 Muscle spasm of back; R93.7 Abnormal findings on diagnostic imaging of other parts of musculoskeletal system
CPT/HCPCS: 78306; A9503

== ENCOUNTER → 2022-11-01 | Outpatient (CLI) | payer MEDICARE ==
--- NOTE | 2022-11-02 08:02 | MM ---
Reason for Exam: Screening (asymptomatic). Last screening mammogram was performed 12 month(s) ago. Patient History: Menarche at age 13. First Full-Term at age 19. Left ovary removed at age 42. Right ovary removed at age 42. Hysterectomy at age 42. Postmenopausal. Patient used Estrogen for 11 years. Hormonal Contraceptives for 4 months. Paternal cousin had breast cancer, age 40. Paternal cousin had breast cancer. Risk Values: Xiomy 5 year model risk: 1.3%. NCI Lifetime model risk: 3.3%. Prior Study Comparison: 10/14/2020 Bilateral Screening Mammogram, [facility]. 08/11/2021 Left MG 3D diag mammo w/cad LT, [facility]. 10/31/2021 Bilateral MG 3D screening mammo w/cad, [facility]. Tissue Density: The breast tissue is heterogeneously dense. This may lower the sensitivity of mammography. Findings: Analyzed By CAD. There is no suspicious group of microcalcifications or new suspicious mass in either breast. Overall Assessment: Negative, BI-RAD 1 Management: Screening Mammogram of both breasts in [address] [facility] will attempt to contact patient to return for supplemental views and ultrasound if indicated. Patient should continue monthly self-breast exams. A clinical breast exam by your physician is recommended on an annual basis. This exam should not preclude additional follow-up of suspicious palpable abnormalities. Note on Xiomy scores and lifetime risk: 1. A Xiomy score greater than 3% is considered moderate risk. If this is the case, consider specialist referral to assess eligibility for a risk reducing agent. 2. If overall lifetime risk for the development of breast cancer is 20% or higher, the patient may qualify for future screening with alternating mammogram and breast MRI. Electronically signed and approved by: Alexander Dominguez DO
== END | disposition home or self-care (01) ==
LOC: RADMAMWWP 08:17
PROVIDERS: ATTEND Surgery
DX: Z12.31 Encounter for screening mammogram for malignant neoplasm of breast (principal); Z78.0 Asymptomatic menopausal state; Z80.3 Family history of malignant neoplasm of breast
CPT/HCPCS: 77063; 77067

== ENCOUNTER → 2022-11-23 | Outpatient (CLI) | payer MEDICARE ==
[2022-11-23 16:32] VITALS: BP 183/93; PULSE 59; RESP 18; TEMP 97.8
--- NOTE | 2022-11-23 16:56 | P.PN ---
Subjective Progress Note Date: 11/23/22 Principal diagnosis: breast pain breast pain Dennise is a 71 year old white female seen in consultation for Dr. Dowd on 09-08-21 regarding breast pain. She had a bilateral mammogram on 10-14-20 which was BIRAD 2, and a repeat left breast mammogram on 08-11-21 which was BIRAD 2. Bilateral mammogram in 6 months was recommended. She states in March she was under stress and "screamed", she states after all her muscles in her chest were very tight. She had a massage and pain in her lateral chest wall radiated into her breast. She is not complaining of any lumps masses or nodules of concern in either breast. She's not complaining of any nipple discharge or skin changes. She is not had any recent trauma or infection to the breast. She did have musculoskeletal pain as noted above. It is resolved at this time. Is not complaining of any breast pain at this time. She is not complaining of any new lumps masses or nodules of concern in either breast. Bilateral mammogram on 11-01-22 BIRAD 1 Caffiene: 3 cups/day nicotine: none, stopped 50 years ago, was a casual smoker for about 5 years hormones: stopped 15 years ago; took them for about 4 years; premarin BCP: in her 20's (less than a year) Family History: paternal cousin 2 with breast cancer Hormonal History: menarche: 13 , breast fed: no, age at first : 19 menopause: hysterectomy for pain BCP: as above, hormones: as above Surgical History: Hysterectomy took ovaries in her 40's gallbladder tonsil appy Medical History: high cholesterol panic attacks reflux hypothyroid DVT Social History: HEENT: Negative Alcohol: Negative Drugs:none - Constitutional Constitutional: Denies chills, Denies fever - EENT Eyes: denies blurred vision, denies pain Ears: deny: decreased hearing, tinnitus Ears, nose, mouth and throat: Denies headache, Denies sore throat - Breasts Breasts: bilateral: as per HPI - Cardiovascular Cardiovascular: Denies chest pain, Denies shortness of breath - Respiratory Respiratory: Denies cough - Gastrointestinal Gastrointestinal: Denies abdominal pain, Denies diarrhea, Denies nausea, Denies vomiting - Genitourinary (Female) Genitourinary: Denies dysuria, Denies hematuria - Menstruation Menstruation: Reports post hysterectomy - Musculoskeletal Musculoskeletal: Denies myalgias - Integumentary Integumentary: Denies pruritus, Denies rash - Neurological Neurological: Denies numbness, Denies weakness - Psychiatric Psychiatric: Denies anxiety, Denies depression - Endocrine Comment: hypothyroid Endocrine: Reports weight change - Hematologic/Lymphatic Comment: none - Allergic/Immunologic Allergic/Immunologic: Reports as per HPI Objective - Vital Signs Vital signs: Vital Signs Temp 97.8 F 11/23/22 16:26 Pulse 59 L 11/23/22 16:26 Resp 18 11/23/22 16:26 BP 183/93 11/23/22 16:26 Pulse Ox 97 11/23/22 16:26 FiO2 Intake & Output 11/22/22 11/23/22 11/23/22 18:59 06:59 18:59 Weight 86.183 kg - Constitutional General appearance: Present: cooperative - EENT Eyes: Present: EOMI ENT: Present: hearing grossly normal - Neck Neck: Present: normal ROM - Respiratory Respiratory: bilateral: CTA - Cardiovascular Rhythm: regular Heart sounds: normal: S1, S2 - Integumentary Integumentary: Present: normal turgor - Musculoskeletal Musculoskeletal: Present: gait normal - Psychiatric Psychiatric: Present: A&O x's 3, appropriate affect, intact judgment & insight - Additional findings Additional findings: Breast Exam: BRA: 38D Inspection: Bilateral grade 2 ptosis, small skin change at 12 o'clock position periareolar region left breast Palpation: Right breast: Multiple positional exam fibrocystic changes no dominant masses or nodules of concern Right axilla: No adenopathy of concern Left breast: Multiple positional exam fibrocystic changes no dominant masses or nodules of concern, small skin change 12:00 region periareolar site Left axilla: No adenopathy of concern Assessment and Plan Assessment: Impression/Plan: Fibrocystic breast changes breast pain Recent bilateral mammogram 11-01-22 BIRAD 1 Plan: Bilateral mammogram in 1 year with physician exam at that time, she will follow with Dr. Dowd Follow-up care as needed Skin changes the left periareolar region 12 o clock, will follow this conservatively patient will follow up in 1 month if this is still present a punch biopsy will be done Follow-up 1 month Cc: Dr. Son
== END ==
LOC: WWCWWP 15:39
PROVIDERS: ATTEND Surgery
DX: Z12.31 Encounter for screening mammogram for malignant neoplasm of breast (principal); N60.19 Diffuse cystic mastopathy of unspecified breast; N64.4 Mastodynia; K21.9 Gastro-esophageal reflux disease without esophagitis; E78.00 Pure hypercholesterolemia, unspecified; E03.9 Hypothyroidism, unspecified; Z86.718 Personal history of other venous thrombosis and embolism; Z87.891 Personal history of nicotine dependence; Z80.3 Family history of malignant neoplasm of breast; Z88.5 Allergy status to narcotic agent; Z88.8 Allergy status to other drugs, medicaments and biological substances; Z88.1 Allergy status to other antibiotic agents; Z79.890 Hormone replacement therapy; Z79.01 Long term (current) use of anticoagulants

== ENCOUNTER → 2023-02-28 | Outpatient (CLI) | payer MEDICARE ==
[2023-02-28 09:47] VITALS: BP 160/83; PULSE 63; RESP 18; TEMP 98.1
--- NOTE | 2023-02-28 09:47 | P.PN ---
Subjective Progress Note Date: 02/28/23 breast pain Dennise is a 71 year old white female seen in consultation for Dr. Dowd on 09-08-21 regarding breast pain. She had a bilateral mammogram on 10-14-20 which was BIRAD 2, and a repeat left breast mammogram on 08-11-21 which was BIRAD 2. Bilateral mammogram in 6 months was recommended. She states in March she was under stress and "screamed", she states after all her muscles in her chest were very tight. She had a massage and pain in her lateral chest wall radiated into her breast. She is not complaining of any lumps masses or nodules of concern in either breast. She's not complaining of any nipple discharge or skin changes. She is not had any recent trauma or infection to the breast. She did have musculoskeletal pain as noted above. It is resolved at this time. Is not complaining of any breast pain at this time. She is not complaining of any new lumps masses or nodules of concern in either breast. Bilateral mammogram on 11-01-22 BIRAD 1 02-28-23 Persistent area of skin change remains in the left nipple areolar region. Otherwise she is not complaining of any new lumps masses or nodules of concern in either breast. Caffiene: 3 cups/day nicotine: none, stopped 50 years ago, was a casual smoker for about 5 years hormones: stopped 15 years ago; took them for about 4 years; premarin BCP: in her 20's (less than a year) Family History: paternal cousin 2 with breast cancer Hormonal History: menarche: 13 , breast fed: no, age at first : 19 menopause: hysterectomy for pain BCP: as above, hormones: as above Surgical History: Hysterectomy took ovaries in her 40's gallbladder tonsil appy Medical History: high cholesterol panic attacks reflux hypothyroid DVT Social History: HEENT: Negative Alcohol: Negative Drugs:none - Constitutional Constitutional: Denies chills, Denies fever - EENT Eyes: denies blurred vision, denies pain Ears: deny: decreased hearing, tinnitus Ears, nose, mouth and throat: Denies headache, Denies sore throat - Breasts Breasts: bilateral: as per HPI - Cardiovascular Cardiovascular: Denies chest pain, Denies shortness of breath - Respiratory Respiratory: Denies cough - Gastrointestinal Gastrointestinal: Denies abdominal pain, Denies diarrhea, Denies nausea, Denies vomiting - Genitourinary (Female) Genitourinary: Denies dysuria, Denies hematuria - Menstruation Menstruation: Reports post hysterectomy - Musculoskeletal Musculoskeletal: Denies myalgias - Integumentary Integumentary: Denies pruritus, Denies rash - Neurological Neurological: Denies numbness, Denies weakness - Psychiatric Psychiatric: Denies anxiety, Denies depression - Endocrine Comment: hypothyroid Endocrine: Reports weight change - Hematologic/Lymphatic Comment: none - Allergic/Immunologic Allergic/Immunologic: Reports as per HPI Objective - Vital Signs Vital signs: Vital Signs Temp 98.1 F 02/28/23 09:34 Pulse 63 02/28/23 09:34 Resp 18 02/28/23 09:34 BP 160/83 02/28/23 09:34 Pulse Ox 97 02/28/23 09:34 FiO2 Intake & Output 02/27/23 02/28/23 02/28/23 18:59 06:59 18:59 Weight 87.09 kg - Constitutional General appearance: Present: cooperative - EENT Eyes: Present: EOMI ENT: Present: hearing grossly normal - Neck Neck: Present: normal ROM - Respiratory Respiratory: bilateral: CTA - Cardiovascular Heart sounds: normal: S1, S2 - Psychiatric Psychiatric: Present: A&O x's 3, appropriate affect, intact judgment & insight - Additional findings Additional findings: Breast Exam: BRA: 38D Inspection: Bilateral grade 2 ptosis, small skin change at 12 o'clock position periareolar region left breast Palpation: Right breast: Multiple positional exam fibrocystic changes no dominant masses or nodules of concern Right axilla: No adenopathy of concern Left breast: Multiple positional exam fibrocystic changes no dominant masses or nodules of concern, small skin change 12:00 region periareolar site Left axilla: No adenopathy of concern Assessment and Plan Assessment: Impression/Plan: Fibrocystic breast changes breast pain Recent bilateral mammogram 11-01-22 BIRAD 1 Plan: Bilateral mammogram in 1 year with physician exam at that time, she will follow with Dr. Dowd Follow-up care as needed Skin changes the left periareolar region 12 o clock, will follow this conservatively patient will follow up in 1 month if this is still present a punch biopsy will be done Follow-up 1 month/ at follow-up visit persistent area of skin changes remaining in the left periareolar region, a punch biopsy is recommended Cc: Dr. Son
== END ==
LOC: WWCWWP 08:36
PROVIDERS: ATTEND Surgery
DX: Z12.31 Encounter for screening mammogram for malignant neoplasm of breast (principal); N60.11 Diffuse cystic mastopathy of right breast; N60.12 Diffuse cystic mastopathy of left breast; E03.9 Hypothyroidism, unspecified; E78.00 Pure hypercholesterolemia, unspecified; K21.9 Gastro-esophageal reflux disease without esophagitis; Z86.718 Personal history of other venous thrombosis and embolism; Z87.891 Personal history of nicotine dependence; Z88.5 Allergy status to narcotic agent; Z88.6 Allergy status to analgesic agent; Z88.4 Allergy status to anesthetic agent; Z88.8 Allergy status to other drugs, medicaments and biological substances

== ENCOUNTER → 2023-03-09 | Outpatient (CLI) | payer MEDICARE ==
[2023-03-09 10:30] VITALS: BP 170/81; PULSE 63; RESP 18; TEMP 98
--- NOTE | 2023-03-09 10:52 | P.PN ---
Progress Note - Text Progress Note Date: 03/09/23 02/28/23 breast pain Dennise is a 71 year old white female seen in consultation for Dr. Dowd on 09-08-21 regarding breast pain. She had a bilateral mammogram on 10-14-20 which was BIRAD 2, and a repeat left breast mammogram on 08-11-21 which was BIRAD 2. Bilateral mammogram in 6 months was recommended. She states in March she was under stress and "screamed", she states after all her muscles in her chest were very tight. She had a massage and pain in her lateral chest wall radiated into her breast. She is not complaining of any lumps masses or nodules of concern in either breast. She's not complaining of any nipple discharge or skin changes. She is not had any recent trauma or infection to the breast. She did have musculoskeletal pain as noted above. It is resolved at this time. Is not complaining of any breast pain at this time. She is not complaining of any new lumps masses or nodules of concern in either breast. Bilateral mammogram on 11-01-22 BIRAD 1 02-28-23 Persistent area of skin change remains in the left nipple areolar region. Otherwise she is not complaining of any new lumps masses or nodules of concern in either breast. 03-09-23 Persistent area of skin change in the left nipple areolar region was addressed on last visit of [id number] where a punch biopsy was performed. Patient underwent a punch biopsy of this area on [id number]. Pathology revealed seborrheic keratosis. The patient is doing well at this time. She did however develop a reaction which was rash-like in the area of the punch biopsy. This has resolved at this time. Patient will be due for bilateral mammogram and examination in October 2023 is doing well at this time. Plan: Bilateral mammogram in October 2023 with examination at that time CC: Dr. Batres
== END ==
LOC: WWCWWP 09:35
PROVIDERS: ATTEND Surgery
DX: N64.4 Mastodynia (principal); L82.0 Inflamed seborrheic keratosis; R07.89 Other chest pain; R21 Rash and other nonspecific skin eruption; Z88.1 Allergy status to other antibiotic agents; Z88.5 Allergy status to narcotic agent; Z88.8 Allergy status to other drugs, medicaments and biological substances; Z87.891 Personal history of nicotine dependence

== ENCOUNTER → 2023-10-03 | Outpatient (CLI) | payer MEDICARE ==
--- NOTE | 2023-10-03 11:06 | US ---
EXAMINATION TYPE: US venous doppler duplex LE RT DATE OF EXAM: 10/03/2023 10:03 AM COMPARISON: 04/15/20 CLINICAL INDICATION: Female, 72 years old with history of R60.0 LOCALIZED EDEMA; localized edema in r t ankle. Hx of blood clots, not on thinners. SIDE PERFORMED: Right TECHNIQUE: The lower extremity deep venous system is examined utilizing real time linear array sonog katherine with graded compression, doppler sonography and color-flow sonography. VESSELS IMAGED: Common Femoral Vein Deep Femoral Vein Greater Saphenous Vein * Femoral Vein Popliteal Vein Small Saphenous Vein * Proximal Calf Veins (* superficial vessels) Right Leg: No evidence for DVT. Varicose veins near rt ankle. Edema noted in ankle IMPRESSION: 1. No evidence for DVT right lower extremity imaged from the groin to the upper calf. 2. Additional targeted scanning in the area of concern shows some varicose veins near rt ankle. Edema noted in ankle
== END | disposition home or self-care (01) ==
LOC: RADUSWWP 10:02
PROVIDERS: ATTEND Family Medicine
DX: I83.891 Varicose veins of right lower extremity with other complications (principal)

== ENCOUNTER → 2023-11-05 | Outpatient (CLI) | payer MEDICARE ==
--- NOTE | 2023-11-22 21:04 | MM ---
Reason for Exam: Screening (asymptomatic). Last screening mammogram was performed 12 month(s) ago. Patient History: Menarche at age 13. First Full-Term at age 19. Left ovary removed at age 42. Right ovary removed at age 42. Hysterectomy at age 42. Postmenopausal. Patient used Estrogen for 11 years. Hormonal Contraceptives for 4 months. Paternal cousin had breast cancer, age 40. Paternal cousin had breast cancer. Risk Values: Xiomy 5 year model risk: 1.3%. NCI Lifetime model risk: 3.1%. Prior Study Comparison: 08/11/2021 Left MG 3D diag mammo w/cad LT, [facility]. 10/31/2021 Bilateral MG 3D screening mammo w/cad, [facility]. 11/01/2022 Bilateral MG 3D screening mammo w/cad, [facility]. Tissue Density: The breasts are heterogeneously dense, which may obscure small masses. Findings: Analyzed By CAD. Benign bilateral vascular calcifications. Chronic nodularity lateral left breast. There is no suspicious group of microcalcifications or new suspicious mass in either breast. Overall Assessment: Benign, BI-RAD 2 Management: Screening Mammogram of both breasts in 1 year. . Patient should continue monthly self-breast exams. A clinical breast exam by your physician is recommended on an annual basis. This exam should not preclude additional follow-up of suspicious palpable abnormalities. Note on Xiomy scores and lifetime risk: 1. A Xiomy score greater than 3% is considered moderate risk. If this is the case, consider specialist referral to assess eligibility for a risk reducing agent. 2. If overall lifetime risk for the development of breast cancer is 20% or higher, the patient may qualify for future screening with alternating mammogram and breast MRI. Electronically signed and approved by: Leah Gayle M.D. Radiologist
== END | disposition home or self-care (01) ==
LOC: RADMAMWWP 12:49
PROVIDERS: ATTEND Surgery
DX: Z12.31 Encounter for screening mammogram for malignant neoplasm of breast (principal); Z78.0 Asymptomatic menopausal state; Z80.3 Family history of malignant neoplasm of breast; Z90.721 Acquired absence of ovaries, unilateral
CPT/HCPCS: 77063; 77067

== ENCOUNTER → 2023-11-08 | Outpatient (CLI) | payer MEDICARE ==
--- NOTE | 2023-11-27 16:25 | MR ---
Patient: Dennise Montemayor A Ordering Physician: Unknown, Unknown ID: [id number] Phone, Pager: Phone: N/ A Pager: N/A : [phone] Age/Gender: 73Y, F Primary Location: N/A Procedure: MRI BRAIN W/WO CONTRA ST Study Date: 11/08/2023 1:55:49 PM EXAMINATION TYPE: MR brain wo/w con DATE OF EXAM: 11/09/2023 9:30 AM COMPARISON: NONE HISTORY: Tremors CONTRAST: 9ml gadavist Multiplanar and multispin-echo imaging of the brain was performed . Pre and post contrast enhanced i mages are obtained. The ventricles, basal cisterns and sulci overlying the cerebral convexities are mild enlarged. There is evidence of mild periventricular white matter ischemic demyelination. Remote deep white matter insults are also noted. No acute edema is seen on diffusion weighted imaging. There is no evidence for midline shift or mass effect. Acute intracranial hemorrhage or extra-axial collection is not evident. No enhancing lesions are seen. The paranasal sinuses and mastoid air cells are well-aerated. IMPRESSION: Age-related atrophic and chronic small vessel ischemic change. No acute intracranial process at this time. No enhancing lesions are seen.
== END | disposition home or self-care (01) ==
LOC: RADMRIMAIN 02:38
PROVIDERS: ATTEND Psychiatry & Neurology Neurology
DX: I63.319 Cerebral infarction due to thrombosis of unspecified middle cerebral artery (principal); G31.1 Senile degeneration of brain, not elsewhere classified
CPT/HCPCS: 70553; A9585

== ENCOUNTER → 2023-12-14 | Outpatient (CLI) | payer MEDICARE ==
[2023-12-14 11:55] VITALS: BP 169/84; PULSE 80; RESP 17; TEMP 98.3
--- NOTE | 2023-12-14 11:59 | P.PN ---
Subjective Progress Note Date: 12/14/23 Principal diagnosis: fibrosyctic breast changes Subjective 12-14-23 Progress Note Date: 02/28/23 breast pain Dennise is a 71 year old white female seen in consultation for Dr. Dowd on 09-08-21 regarding breast pain. She had a bilateral mammogram on 10-14-20 which was BIRAD 2, and a repeat left breast mammogram on 08-11-21 which was BIRAD 2. Bilateral mammogram in 6 months was recommended. She states in March she was under stress and "screamed", she states after all her muscles in her chest were very tight. She had a massage and pain in her lateral chest wall radiated into her breast. She is not complaining of any lumps masses or nodules of concern in either breast. She's not complaining of any nipple discharge or skin changes. She is not had any recent trauma or infection to the breast. She did have musculoskeletal pain as noted above. It is resolved at this time. Is not complaining of any breast pain at this time. She is not complaining of any new lumps masses or nodules of concern in either breast. Bilateral mammogram on 11-01-22 BIRAD 1 02-28-23 Persistent area of skin change remains in the left nipple areolar region. Otherwise she is not complaining of any new lumps masses or nodules of concern i n either breast. Following informed consent the area of the left breast was prepped using Betadine. 1% lidocaine was used to anesthetize the area of concern. A 3.5 mm punch biopsy was used to obtain a sampling of the skin that was of concern. This is retrieved and sent to pathology. The area was treated with a silver nitrate stick and one suture was placed. A sterile dressing was applied. The patient will follow up next week. pathology seborrheic keratosis 12-14-23 bilateral mammogram on 11-05-23 BIRAD 2 personally interpreted kim score 1.3% lifetime risk: 3.1% She is not complaining of any new lumps masses or nodules of concern in either breast. She is not complaining of any pain in her breast at this time. Caffiene: 3 cups/day nicotine: none, stopped 50 years ago, was a casual smoker for about 5 years hormones: stopped 15 years ago; took them for about 4 years; premarin BCP: in her 20's (less than a year) Family History: paternal cousin 2 with breast cancer Hormonal History: menarche: 13 , breast fed: no, age at first : 19 menopause: hysterectomy for pain BCP: as above, hormones: as above Surgical History: Hysterectomy took ovaries in her 40's gallbladder tonsil appy Medical History: high cholesterol panic attacks reflux hypothyroid DVT Social History: HEENT: Negative Alcohol: Negative Drugs:none - Constitutional Constitutional: Denies chills, Denies fever - EENT Eyes: denies blurred vision, denies pain Ears: deny: decreased hearing, tinnitus Ears, nose, mouth and throat: Denies headache, Denies sore throat - Breasts Breasts: bilateral: as per HPI - Cardiovascular Cardiovascular: Denies chest pain, Denies shortness of breath - Respiratory Respiratory: Denies cough - Gastrointestinal Gastrointestinal: Denies abdominal pain, Denies diarrhea, Denies nausea, Denies vomiting - Genitourinary (Female) Genitourinary: Denies dysuria, Denies hematuria - Menstruation Menstruation: Reports post hysterectomy - Musculoskeletal Musculoskeletal: Denies myalgias - Integumentary Integumentary: Denies pruritus, Denies rash - Neurological Neurological: Denies numbness, Denies weakness - Psychiatric Psychiatric: Denies anxiety, Denies depression - Endocrine Comment: hypothyroid Endocrine: Reports weight change - Hematologic/Lymphatic Comment: none - Allergic/Immunologic Allergic/Immunologic: Reports as per HPI Objective - Constitutional General appearance: Present: cooperative - EENT Eyes: Present: EOMI ENT: Present: hearing grossly normal - Neck Neck: Present: normal ROM - Respiratory Respiratory: bilateral: CTA - Cardiovascular Heart sounds: normal: S1, S2 - Integumentary Integumentary: Present: normal turgor - Musculoskeletal Musculoskeletal Comment(s): difficulty with gait - Psychiatric Psychiatric: Present: A&O x's 3, appropriate affect, intact judgment & insight - Additional findings Additional findings: Breast Exam: BRA: 38D Inspection: Bilateral grade 2 ptosis, small skin change at 12 o'clock position periareolar region left breast Palpation: Right breast: Multiple positional exam fibrocystic changes no dominant masses or nodules of concern Right axilla: No adenopathy of concern Left breast: Multiple positional exam fibrocystic changes no dominant masses or nodules of concern, 12:00 0'clock region periareolar left breast at site of prior punch biopsy has a scar at the site Left axilla: No adenopathy of concern Assessment and Plan Assessment: Impression/Plan: Fibrocystic breast changes breast pain resolved Recent bilateral mammogram 11-05-23 BIRAD 2 Plan: Bilateral mammogram in 1 year with physician exam at that time Follow-up care as needed appointment with Sr. Harkins Cc: Dr. Harkins
== END ==
LOC: WWCWWP 10:31
PROVIDERS: ATTEND Surgery
DX: R92.8 Other abnormal and inconclusive findings on diagnostic imaging of breast (principal); N60.11 Diffuse cystic mastopathy of right breast; N60.12 Diffuse cystic mastopathy of left breast; Z87.891 Personal history of nicotine dependence; Z80.3 Family history of malignant neoplasm of breast; Z88.1 Allergy status to other antibiotic agents; Z88.5 Allergy status to narcotic agent; Z88.8 Allergy status to other drugs, medicaments and biological substances

== ENCOUNTER → 2024-02-18 | Outpatient (CLI) | payer MEDICARE | END | disposition home or self-care (01) | LOC: RADUSWWP 14:44 | PROVIDERS: ATTEND Family Medicine | DX: Z53.9 Procedure and treatment not carried out, unspecified reason (principal) ==

== ENCOUNTER → 2024-06-03 | Outpatient (CLI) | payer MEDICARE ==
[2024-06-03 10:24] VITALS: BP 157/83; PULSE 68; RESP 16; TEMP 97.6
--- NOTE | 2024-06-03 11:30 | P.HPOB ---
History of Present Illness H&P Date: 06/03/24 Chief Complaint: The patient is here for her routine gynecologic exam. This is a 73-year-old G3, P3 with an LMP of 1993. The patient is here to establish with this office. It has been about 1 year since her last pelvic exam. She previously saw Dr. Dowd for her gynecologic care. She is without gynecologic complaints. Review of Systems The patient's weight has been stable over the last year. She denies respiratory, cardiac, or G.I. problems. Past Medical History Past Medical History: Deep Vein Thrombosis (DVT), GERD/Reflux, Hyperlipidemia, Neurologic Disorder, Thyroid Disorder Additional Past Medical History / Comment(s): HX DVT RT LEG and tested positive for a genetic mutation(?MTHFR). Hypothyroidism. Chronic back problems. Mild essential tremor. 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 History of Any Multi-Drug Resistant Organisms: None Reported Past Surgical History: Appendectomy, Cholecystectomy, Hysterectomy, Orthopedic Surgery, Tonsillectomy, Tubal Ligation Additional Past Surgical History / Comment(s): varicose vein surgery 05/2018. YING/BSO 1993. Cataract surgery. Colonoscopy 2015(next after 10yr). Past Anesthesia/Blood Transfusion Reactions: Postoperative Nausea & Vomiting (PONV) Past Psychological History: Anxiety Smoking Status: Former smoker Past Alcohol Use History: None Reported Additional Past Alcohol Use History / Comment(s): SMOKED FOR 4-5 YRS UNTIL 30'S LESS THAN 1PPD Past Drug Use History: None Reported Additional History: She has been since 1980 and retired from [employer] in 2013. - Past Family History Mother Family Medical History: Deep Vein Thrombosis (DVT), Hypertension Additional Family Medical History / Comment(s): . Sister(s) Family Medical History: Deep Vein Thrombosis (DVT), Hypertension Additional Family Medical History / Comment(s): 2 sisters in a car accident. Father Family Medical History: Myocardial Infarction (NE) Additional Family Medical History / Comment(s): . in a car accident thought to be resulting from an NE. 2 paternal cousins had breast cancer. Brother(s) Additional Family Medical History / Comment(s): from an aneurysm. Medications and Allergies Home Medications Medication Instructions Recorded Confirmed Type Atorvastatin [Lipitor] 40 mg PO DAILY 08/17/14 06/03/24 History Citalopram Hydrobromide 30 mg PO DAILY 08/17/14 06/03/24 History [Citalopram HBr] Levothyroxine Sodium [Synthroid] 88 mcg PO DAILY 08/17/14 06/03/24 History Pantoprazole [Protonix] 40 mg PO DAILY 09/08/21 06/03/24 History Ibuprofen [Motrin] 600 mg PO Q8H PRN 7 Days #21 tab 12/13/21 06/03/24 Rx ALPRAZolam [Xanax] 0.25 mg PO HS PRN 11/23/22 06/03/24 History Allergies Allergy/AdvReac Type Severity Reaction Status Date / Time acetaminophen [From Lortab] Allergy Unknown Verified 06/03/24 10:17 hydrocodone bitartrate Allergy "MADE ME Verified 06/03/24 10:17 [From Lortab] SPACED OUT, EFFECTED B/P" prednisone Allergy Rash/Hives Unverified 06/03/24 10:20 propoxyphene HCl Allergy Unknown Verified 06/03/24 10:17 [From Darvon] Sulfa (Sulfonamide Allergy Unknown Unverified 06/03/24 10:20 Antibiotics) clemastine fumarate AdvReac Unknown Verified 06/03/24 10:17 [From Tavist] codeine AdvReac Unknown Verified 06/03/24 10:17 lidocaine AdvReac Rash/Hives Unverified 06/03/24 10:17 meperidine HCl [From Demerol] AdvReac Unknown Verified 06/03/24 10:17 pseudoephedrine HCl AdvReac Unknown Verified 06/03/24 10:17 [From Tavist] Exam Vital Signs Temp Pulse Resp BP Pulse Ox 06/03/24 10:20 97.6 F 68 16 157/83 95 Intake and Output 06/02/24 06/03/24 06/03/24 22:59 06:59 14:59 Other: Weight 88.904 kg Height 5 feet 2-1/2 inches, weight 196 pounds, BMI 34.7. This is a well-developed well-nourished white female who is alert and oriented times 3 in no acute distress. HEENT: Within normal limits. NECK: Supple without mass or thyromegaly. CHEST AND LUNGS: Clear to auscultation. HEART: Regular rate and rhythm. BREASTS: Are without mass or discharge. AXILLARY EXAM: Negative for adenopathy. BACK: Negative for CVA tenderness. ABDOMEN: Soft, nontender, without palpable masses. PELVIC EXAM: External genitalia appears normal with mild atrophy. Vagina appears normal with mild atrophy. There is no evidence of prolapse. Bimanual examination is negative for mass or tenderness. RECTAL EXAM: Rectovaginal exam is negative for mass or tenderness and is negative for occult blood. EXTREMITIES: Nontender. IMPRESSION: 1. 73-year-old menopausal female status post YING/BSO with normal gynecologic exam. 2. History of osteopenia. 3. Elevated blood pressure. PLAN: 1. Pap smears have been discontinued. 2. Self breast awareness was discussed with the patient. We have also discussed symptoms associated with inflammatory breast cancer. 3. Screening mammogram will be due in October and the order slip was given to the patient for this. 4. Osteoporosis prevention was discussed. I have stressed the importance of adequate calcium, vitamin D and regular exercise. Recommended amounts of calcium and vitamin D were also discussed. I recommended repeating the bone density test since her last 1 was on 09/17/2020. The order slip was given to the patient for this. 5. Her elevated blood pressure was discussed. 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 6. Weight control was discussed. I have stressed the importance of good nutrit ion, regular meals, adequate fiber, and regular exercise. 7. She was advised to return in one year for her annual well woman exam.
== END ==
LOC: WWCWWP 10:03
PROVIDERS: ATTEND Obstetrics & Gynecology
DX: I10 Essential (primary) hypertension (principal); Z78.0 Asymptomatic menopausal state; Z90.710 Acquired absence of both cervix and uterus; Z87.39 Personal history of other diseases of the musculoskeletal system and connective tissue; Z87.891 Personal history of nicotine dependence; Z88.6 Allergy status to analgesic agent; Z88.5 Allergy status to narcotic agent; Z88.8 Allergy status to other drugs, medicaments and biological substances; Z88.2 Allergy status to sulfonamides; Z91.048 Other nonmedicinal substance allergy status; Z88.4 Allergy status to anesthetic agent

== ENCOUNTER → 2024-06-27 | Outpatient (CLI) | payer MEDICARE ==
--- NOTE | 2024-06-27 12:54 | BD ---
EXAMINATION TYPE: Axial Bone Density DATE OF EXAM: 06/27/2024 CLINICAL HISTORY: 73 years old Female. ICD-10 CODE: Z78.0 POSTMENOPAUSAL , Additional History: Height: 62 Weight: 195.9 FRAX RISK QUESTIONS: Alcohol (3 or more units per day): no Family History (Parent hip fracture): no Glucocorticoids (More than 3mos): no (Ex: prednisone, prednisolone, methylprednisolone, dexamethasone, and hydrocortisone). History of Fracture in Adulthood: pelvis Secondary Osteoporosis: 1. Type 1 Diabetes: no 2. Hyperthyroidism: no 3. Menopause before 45: yes age 42 4. Malnutrition: no 5. Chronic liver disease: no Rheumatoid Arthritis: no Current Tobacco Use: no RISK FACTORS HISTORY OF: Hip Fracture (Right/Left): no Spine Fracture: no History of Wrist Fracture: no Surgery to Spine/Hip(right/left)/Wrist (right/left): no MEDICATIONS: Thyroid Medications: Levothyroxine How Long: past 15 years Osteoporosis Medications: no EXAM MEASUREMENTS: Bone mineral densitometry was performed using the [employer] System. Bone mineral density as measured about the Lumbar spine is: ----- L1-L4(G/cm2): 1.432 T Score Values are as follows: ----- L1: 0.2 ----- L2: 2.4 ----- L3: 3.6 ----- L4: 2.2 ----- L1-L4: 2.1 Z Score Values are as follows: ----- L1: 1.2 ----- L2: 3.3 ----- L3: 4.5 ----- L4: 3.1 ----- L1-L4: 3.0 Bone mineral density has: decreased 11.2 % since study of: 09/17/2020 Bone mineral density about the R hip (g/cm2): 0.836 Bone mineral density about the L hip (g/cm2): 0.952 T Score values are as follows: -----R Neck: -1.3 -----L Neck: -1.4 -----R Total: -1.4 -----L Total: -0.4 Z Score values are as follows: -----R Neck: 0.0 -----L Neck: 0.0 -----R Total: -0.3 -----L Total: 0.7 Bone mineral density has: decreased -1.2% since study of: 09/17/2020 FRAX%s: The graph provided illustrates a 15.0% chance for a major osteoporotic fx and a 2.3% chance f or the hips probability for fx in 10 years time. IMPRESSION: Osteopenia (T Score between -2.5 and -1). There is slightly increased risk of fracture and the patient may be considered for treatment. Re-Screen 2-5 years. NOTE: T-SCORE=SD OF THE YOUNG ADULT MEAN. [facility], , 06/27/2024 12:52 PM
== END | disposition home or self-care (01) ==
LOC: RADBDWWP 10:00
PROVIDERS: ATTEND Obstetrics & Gynecology
DX: M85.89 Other specified disorders of bone density and structure, multiple sites (principal); Z78.0 Asymptomatic menopausal state
CPT/HCPCS: 77080